=== PATIENT | female | born 1990 | race American Indian/Alaskan Native ===

== ENCOUNTER 2019-03-29 22:27 | Emergency (ER) | payer SELFPAY ==
[2019-03-29 23:03] VITALS: BP 109/75
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
[2019-03-30] MEDS ORDERED: LORazepam 2 MG/ML VIAL IV ONE (04:58)
[2019-03-30] MEDS ORDERED: levETIRAcetam 1000 MG/NS 0.75% 1,000 MG/100 ML BAG IV ONE (05:07)
[2019-03-30 05:30] LABS: Mean Corpuscular HGB Conc 30 % (30-34); Mean Corpuscular Volume 80 fl (79-97); Red Blood Count 5.05 M/mm3 (3.65-5.03); Red Cell Distribution Width 18.2 % (13.2-15.2)
[2019-03-30 05:31] LABS: Hematocrit 40.5 % (30.3-42.9); Hemoglobin 12.2 gm/dl (10.1-14.3)
[2019-03-30 05:32] LABS: Platelet Count 460 K/mm3 (140-440)
[2019-03-30 05:36] LABS: Alanine Aminotransferase 15 units/L (7-56); Albumin 4.3 g/dL (3.9-5); BUN/Creatinine Ratio 11; Blood Urea Nitrogen 11 mg/dL (7-17); Calcium 8.9 mg/dL (8.4-10.2); Hemolysis Index 0
--- NOTE | 2019-03-30 05:45 | Emergency Department Report ---
<SHASHANK COULTER - Last Filed: 03/30/19 05:41> ED Seizure HPI - General Chief Complaint: Fall Stated Complaint: FALL/NOSE PAIN Time Seen by Provider: 03/30/19 03:02 Source: patient Mode of arrival: Ambulatory Limitations: No Limitations - History of Present Illness Initial Comments: After discharge from ED Mrs. Gabriel was on the way out to the waiting room wassitting in a chair actively seizing, patient did lose control of bladder. Patient has history of seizures unknown control medication, she is post ictal at this time, plan check electrolytes, Ativan, load keppra , monitor vital signs, MD Complaint: seizure Onset/Timin -: hour(s) Description of Episode: tonic-clonic movement, bladder incontinence Duration of Episode: 1 -: minutes(s) Witnessed:: Yes Trauma: No Seizure History: known seizure disorder Possible Precipitating Event: none - Related Data Previous Rx's Medication Instructions Recorded Last Taken Type Acetaminophen [Mapap] 650 mg PO Q6H #1 tablet 03/30/19 Unknown Rx Allergies Allergy/AdvReac Type Severity Reaction Status Date / Time lamotrigine Allergy Anaphylaxis Verified 03/30/19 01:54 ED Review of Systems Constitutional: denies: chills, fever Eyes: denies: eye pain, eye discharge, vision change ENT: denies: ear pain, throat pain Respiratory: denies: cough, shortness of breath, wheezing Cardiovascular: as per HPI Endocrine: no symptoms reported Gastrointestinal: denies: abdominal pain, nausea, diarrhea Genitourinary: denies: urgency, dysuria, discharge Musculoskeletal: denies: back pain, joint swelling, arthralgia Skin: denies: rash, lesions Neurological: denies: headache, weakness, paresthesias Psychiatric: denies: anxiety, depression Hematological/Lymphatic: denies: easy bleeding, easy bruising ED Past Medical Hx - Past Medical History Previous Medical History?: Yes Hx Seizures: Yes Hx Asthma: Yes Additional medical history: Bronchitis, Shashank Berry Syndrome - Surgical History Past Surgical History?: Yes Additional Surgical History: X3, Trach - Social History Smoking Status: Never Smoker Substance Use Type: None - Medications Home Medications: Home Medications Medication Instructions Recorded Confirmed Last Taken Type Acetaminophen [Mapap] 650 mg PO Q6H #1 tablet 03/30/19 Unknown Rx ED Physical Exam - General Limitations: No Limitations General appearance: alert, in no apparent distress - Head Head exam: Present: atraumatic, normocephalic - Eye Eye exam: Present: normal appearance, PERRL, EOMI - ENT ENT exam: Present: normal orophraynx, mucous membranes moist - Neck Neck exam: Present: normal inspection, meningismus, full ROM. Absent: tenderness - Respiratory Respiratory exam: Present: normal lung sounds bilaterally. Absent: respiratory distress, wheezes, stridor - Cardiovascular Cardiovascular Exam: Present: regular rate, normal rhythm, normal heart sounds. Absent: systolic murmur, diastolic murmur, rubs, gallop - GI/Abdominal GI/Abdominal exam: Present: soft, normal bowel sounds. Absent: distended, tenderness, guarding, rebound, rigid, bruit, hernia - Rectal Rectal exam: Present: deferred - Extremities Exam Extremities exam: Present: normal capillary refill. Absent: pedal edema - Back Exam Back exam: Absent: tenderness - Neurological Exam Neurological exam: Present: altered, reflexes normal - Expanded Neurological Exam Expanded Neurological exam: Present: protecting the airway Cranial nerves: Gag Reflex: Normal, Tongue Deviation: Normal, Nystagmus: Normal DTR: ankle (R): 2+, ankle (L): 2+ - Skin Skin exam: Present: warm, dry, intact, normal color. Absent: rash ED Medical Decision Making - Lab Data Result diagrams: 03/30/19 05:08 03/30/19 05:07 ED Disposition Clinical Impression: Nose pain Disposition: DC-01 TO HOME OR SELFCARE Condition: Stable Prescriptions: Acetaminophen [Mapap] 650 mg PO Q6H #1 tablet Referrals: [facility] [Outside] - 3-5 Days Forms: Work/School Release Form(ED) <WALT GEORGE - Last Filed: 03/30/19 11:25> ED Review of Systems ROS: Stated complaint: FALL/NOSE PAIN Other details as noted in HPI ED Course Vital Signs 03/29/19 03/30/19 03/30/19 22:57 03:40 10:59 Temperature 98.3 F Pulse Rate 80 82 79 Respiratory 20 16 16 Rate Blood Pressure 109/75 O2 Sat by Pulse 97 100 97 Oximetry - Reevaluation(s) Reevaluation #1: When into patient's room, patient is sleeping, tried to wake patient up patient opened her eyes and went back to sleep. Patient answering to calling of her name will open eyes and go back to sleep 03/30/19 8:24 Reevaluation #2: Patient is currently still asleep, no acute distress, no S3 distress, no repeat of seizure episode 03/30/19 10:25 ED Medical Decision Making - Lab Data Result diagrams: 03/30/19 05:08 03/30/19 05:07 - EKG Data EKG shows normal: sinus rhythm Rate: normal - EKG Data Interpretation: normal EKG - Medical Decision Making This is a 28-year-old female who had a seizure episode in the ED after evaluation for fall. Patient was signed off to me by my colleague Rayo Coulter at 7:25 am . Prior to my evaluation patient had received Keppra and Ativan and is currently asleep. To my knowledge patient has a history of seizures and takes medication for seizures. Patient is in no acute distress. Patient has report instructions medication. Repeat EKG completed 11:00 AM, as normal EKG as documented above. Patient is currently sleeping. Patient is responding to her name being called. Patient is not post ictal at this time. She states she has her seizure medication at home Patient is to be discharged home with medication already given by previous provider. At this time patient is in no acute or respiratory distress. Critical care attestation.: If time is entered above; I have spent that time in minutes in the direct care of this critically ill patient, excluding procedure time. ED Disposition Is pt being admited?: No Does the pt Need Aspirin: No Time of Disposition: 11:15
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
== END 2019-03-30 12:15 | disposition home or self-care (01) ==
LOC: ED 22:27
DX: G40.909 Epilepsy, unspecified, not intractable, without status epilepticus (principal); J34.89 Other specified disorders of nose and nasal sinuses; J45.909 Unspecified asthma, uncomplicated; Z98.890 Other specified postprocedural states; Z79.899 Other long term (current) drug therapy; Z88.8 Allergy status to other drugs, medicaments and biological substances
CPT/HCPCS: 36415; 70450; 80053; 80164; 80185; 84702; 85027; 93005; 93010; 96365; 96375; 99284; J1953; J2060

== ENCOUNTER 2019-05-16 03:09 | Emergency (ER) | payer SELFPAY ==
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
[2019-05-16 05:48] LABS: Bilirubin,Urine NEG (Negative); Blood,Urine NEG (Negative); Color,Urine Yellow (Yellow); Protein,Urine <15 mg/dL mg/dL (Negative); Urobilinogen,Urine < 2.0 mg/dL (<2.0)
[2019-05-16 05:59] LABS: HCG Qualitative,Urine Negative (Negative)
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
[2019-05-16 08:28] VITALS: BP 119/77
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
== END 2019-05-16 09:29 | disposition home or self-care (01) ==
LOC: ED 03:09
DX: S00.83XA Contusion of other part of head, initial encounter (principal); N39.0 Urinary tract infection, site not specified; J45.909 Unspecified asthma, uncomplicated; G40.909 Epilepsy, unspecified, not intractable, without status epilepticus; Z98.890 Other specified postprocedural states; Z79.899 Other long term (current) drug therapy; Z88.8 Allergy status to other drugs, medicaments and biological substances; T76.21XA Adult sexual abuse, suspected, initial encounter; Y93.89 Activity, other specified; Y92.89 Other specified places as the place of occurrence of the external cause; Y99.8 Other external cause status
CPT/HCPCS: 70450; 70486; 81001; 81025; 87086

== ENCOUNTER 2019-07-14 00:35 | Emergency (ER) | payer SELFPAY ==
[2019-07-14 00:49] VITALS: BP 103/60
[2019-07-14] MEDS ORDERED: levETIRAcetam 1000 MG/NS 0.75% 1,000 MG/100 ML BAG IV ONE ×2 (00:52→00:55)
[2019-07-14] MEDS ORDERED: LACOSAMIDE 100 MG TAB PO SCH (01:00)
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
== END 2019-07-14 01:47 | disposition home or self-care (01) ==
LOC: ED 00:35
DX: R56.9 Unspecified convulsions (principal); J45.909 Unspecified asthma, uncomplicated; Z98.890 Other specified postprocedural states; Z79.899 Other long term (current) drug therapy; Z88.8 Allergy status to other drugs, medicaments and biological substances
CPT/HCPCS: 96374; 99283; J1953

== ENCOUNTER 2019-07-29 00:14 | Emergency (ER) | payer SELFPAY ==
[2019-07-29] MEDS ORDERED: ACETAMINOPHEN 500 MG TAB PO ONE (00:55)
[2019-07-29] MEDS ORDERED: cephALEXin 500 MG CAP PO ONE (00:55)
[2019-07-29] MEDS ORDERED: TETANUS,DIPH,PERTUSS(ACELL) VACCINE 0.5 ML SYRINGE IM ONE (00:55)
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
[2019-07-29 03:07] VITALS: BP 106/64
== END 2019-07-29 03:08 | disposition home or self-care (01) ==
LOC: ED 00:14
DX: S00.03XA Contusion of scalp, initial encounter (principal); S00.83XA Contusion of other part of head, initial encounter; S00.81XA Abrasion of other part of head, initial encounter; G40.909 Epilepsy, unspecified, not intractable, without status epilepticus; J45.909 Unspecified asthma, uncomplicated; Z79.899 Other long term (current) drug therapy; Z88.8 Allergy status to other drugs, medicaments and biological substances; Y04.8XXA Assault by other bodily force, initial encounter; Y93.89 Activity, other specified; Y92.89 Other specified places as the place of occurrence of the external cause; Y99.8 Other external cause status
CPT/HCPCS: 70450; 70486; 90471; 90715

== ENCOUNTER 2019-08-02 03:17 | Emergency (ER) | payer SELFPAY ==
[2019-08-02] MEDS ORDERED: levETIRAcetam 1000 MG/NS 0.75% 1,000 MG/100 ML BAG IV ONE (03:21)
--- NOTE | 2019-08-02 03:23 | Emergency Department Report ---
ED Seizure HPI - General Chief Complaint: Seizure Stated Complaint: SEIZURES Time Seen by Provider: 08/02/19 03:21 Source: EMS Mode of arrival: Stretcher Limitations: No Limitations - History of Present Illness Initial Comments: Patient is a 29-year-old female that presents emergency room with complaints of seizures. Patient states she has had 2-3 seizures today. Patient has a long history of seizures. Patient has multiple ER visits for seizures. Patient is not confused. Patient denies confusion. Patient denies post seizure confusion. Patient denies any pain. Patient denies any physical complaints. Patient states she feels fine. Patient states she is wants to be evaluated. Patient denies chest pain. Patient denies shortness of breath. Patient denies recent travel. Patient denies recent international travel. Patient denies exposure to the novel coronavirus. Patient denies sick contacts. Patient denies fever and chills. Patient denies cough. Patient denies diarrhea. Patient denies coming in contact with anybody with symptoms of the novel coronavirus. MD Complaint: seizure -: Sudden Description of Episode: loss of consciousness, tonic-clonic movement Witnessed:: Yes Trauma: No Seizure History: known seizure disorder, compliant with medication Place: home Possible Precipitating Event: none Associated Symptoms: denies: chest pain, confusion, cough, diaphoresis, fever/chills, loss of appetite, malaise, rash, shortness of breath, syncope, weakness, tongue injury, shoulder dislocation Treatments Prior to Arrival: none - Related Data Previous Rx's Medication Instructions Recorded Last Taken Type Acetaminophen [Mapap] 650 mg PO Q6H #1 tablet 03/30/19 Unknown Rx cefUROXime [Ceftin] 250 mg PO Q12H #10 tablet 05/16/19 Unknown Rx Lacosamide [Vimpat] 100 mg PO Q12HR #60 tablet 07/14/19 Unknown Rx levETIRAcetam [Keppra TAB] 1,000 mg PO BID 30 Days #60 tab 07/14/19 Unknown Rx Naproxen 500 mg PO Q12H PRN #24 tablet 07/29/19 Unknown Rx cephALEXin [Keflex] 500 mg PO Q8HR #30 cap 07/29/19 Unknown Rx Allergies Allergy/AdvReac Type Severity Reaction Status Date / Time lamotrigine Allergy Anaphylaxis Verified 07/29/19 00:21 ED Review of Systems ROS: Stated complaint: SEIZURES Other details as noted in HPI Constitutional: denies: chills, fever Eyes: denies: eye pain, eye discharge, vision change ENT: denies: ear pain, throat pain Respiratory: denies: cough, shortness of breath, wheezing Cardiovascular: denies: chest pain, palpitations Endocrine: no symptoms reported Gastrointestinal: denies: abdominal pain, nausea, diarrhea Genitourinary: denies: urgency, dysuria, discharge Musculoskeletal: denies: back pain, joint swelling, arthralgia Skin: denies: rash, lesions Neurological: denies: headache, weakness, paresthesias Psychiatric: denies: anxiety, depression Hematological/Lymphatic: denies: easy bleeding, easy bruising ED Past Medical Hx - Past Medical History Previous Medical History?: Yes Hx Seizures: Yes Hx Asthma: Yes Additional medical history: Bronchitis, Shashank Berry Syndrome - Surgical History Past Surgical History?: Yes Additional Surgical History: X3, Trach - Family History Family history: no significant - Social History Smoking Status: Never Smoker Substance Use Type: None - Medications Home Medications: Home Medications Medication Instructions Recorded Confirmed Last Taken Type Acetaminophen [Mapap] 650 mg PO Q6H #1 tablet 03/30/19 Unknown Rx cefUROXime [Ceftin] 250 mg PO Q12H #10 tablet 05/16/19 Unknown Rx Lacosamide [Vimpat] 100 mg PO Q12HR #60 tablet 07/14/19 Unknown Rx levETIRAcetam [Keppra TAB] 1,000 mg PO BID 30 Days #60 tab 07/14/19 Unknown Rx Naproxen 500 mg PO Q12H PRN #24 tablet 07/29/19 Unknown Rx cephALEXin [Keflex] 500 mg PO Q8HR #30 cap 07/29/19 Unknown Rx ED Physical Exam - General Limitations: No Limitations General appearance: alert, in no apparent distress - Head Head exam: Present: atraumatic, normocephalic - Eye Eye exam: Present: normal appearance - ENT ENT exam: Present: mucous membranes moist - Neck Neck exam: Present: normal inspection - Respiratory Respiratory exam: Present: normal lung sounds bilaterally. Absent: respiratory distress - Cardiovascular Cardiovascular Exam: Present: regular rate, normal rhythm. Absent: systolic murmur, diastolic murmur, rubs, gallop - GI/Abdominal GI/Abdominal exam: Present: soft, normal bowel sounds - Extremities Exam Extremities exam: Present: normal inspection - Back Exam Back exam: Present: normal inspection - Neurological Exam Neurological exam: Present: alert, oriented X3 - Psychiatric Psychiatric exam: Present: normal affect, normal mood - Skin Skin exam: Present: warm, dry, intact, normal color. Absent: rash ED Course Vital Signs 08/02/19 08/02/19 03:30 03:33 Temperature 98.6 F Pulse Rate 88 Respiratory 18 18 Rate Blood Pressure 121/67 [Left] O2 Sat by Pulse 98 98 Oximetry - Reevaluation(s) Reevaluation #1: I discussed all results and clinical findings with patient. I discussed plan of care with patient. Patient agrees with plan of care. Patient is stable for discharge. Patient will be discharged home. Patient given discharge instructions. Patient voiced understanding of discharge instructions. 08/02/19 04:23 ED Medical Decision Making - Lab Data Result diagrams: 08/02/19 03:31 08/02/19 03:31 - Medical Decision Making Patient is a 29-year-old female that presents emergency room with seizure. Patient states she has had multiple seizures. No seizure activity noted in the ER. No seizure activity noted by EMS in route. Patient states she is compliant with her medications. Patient was given a gram of Keppra. Patient had labs done which were unremarkable. I compared to previous labs and there is no change in labs. Patient stable discharge. Patient discharged home. - Differential Diagnosis Seizure, Critical care attestation.: If time is entered above; I have spent that time in minutes in the direct care of this critically ill patient, excluding procedure time. ED Disposition Clinical Impression: Seizure Disposition: DC-01 TO HOME OR SELFCARE Is pt being admited?: No Does the pt Need Aspirin: No Condition: Stable Instructions: Recurrent Seizures Adult (ED), Women and Epilepsy (ED) Additional Instructions: Patient to follow-up with primary care in 2 to 3 days. Patient to follow-up with neurologist in 2 to 3 days. Patient to rest. Patient to increase water. Patient to avoid strenuous exercise or heavy lifting until cleared by neurologist and primary care. Patient to avoid driving. Patient to take Tylenol or ibuprofen as needed for pain. Patient to continue all medications.. Patient to return to the ER if condition worsens, changes or new symptoms arise. Referrals: ROSA WARD MD [Staff Physician] - 2-3 Days Time of Disposition: 04:25
[2019-08-02 03:47] LABS: Hemoglobin 10.7 gm/dl (10.1-14.3)
[2019-08-02 03:55] LABS: Mean Corpuscular HGB Conc 32 % (30-34); Mean Corpuscular Volume 80 fl (79-97); Platelet Count 380 K/mm3 (140-440); Red Blood Count 4.23 M/mm3 (3.65-5.03); Red Cell Distribution Width 18.3 % (13.2-15.2)
[2019-08-02 04:02] VITALS: BP 121/67
[2019-08-02 04:12] LABS: Alanine Aminotransferase 11 units/L (7-56); Albumin 3.6 g/dL (3.9-5); BUN/Creatinine Ratio 9; Blood Urea Nitrogen 8 mg/dL (7-17); Calcium 8.1 mg/dL (8.4-10.2); Hemolysis Index 5
== END 2019-08-02 04:54 | disposition home or self-care (01) ==
LOC: ED 03:17
DX: R56.9 Unspecified convulsions (principal); J45.909 Unspecified asthma, uncomplicated; Z98.890 Other specified postprocedural states; Z79.899 Other long term (current) drug therapy; Z88.8 Allergy status to other drugs, medicaments and biological substances
CPT/HCPCS: 36415; 80053; 84703; 85027; 96365; 99283; J1953

== ENCOUNTER 2021-10-07 18:35 | Emergency (ER) | payer SELFPAY ==
[2021-10-07 18:40] VITALS: BP 128/84
== END 2021-10-07 18:56 | disposition left against medical advice (07) ==
LOC: ED 18:35
DX: R56.9 Unspecified convulsions (principal); Z53.21 Procedure and treatment not carried out due to patient leaving prior to being seen by health care provider; W19.XXXA Unspecified fall, initial encounter; Y93.89 Activity, other specified; Y92.89 Other specified places as the place of occurrence of the external cause; Y99.8 Other external cause status